=== PATIENT | male | born 1995 | race Caucasian/White ===

== ENCOUNTER → 2017-05-18 | Day surgery (SDC) | payer OTHER ==
[~2017-05-18] MED LIST: NO MEDICATIONS
--- NOTE | ~2017-05-18 | OR ---
Unit #: [id number] #: [id number] Patient: NATHEN LIVE [id number] [address] [id number] MR#: [id number] NAME: NATHEN LIVE ROOM: Date of Procedure: 05/18/2017 Admission Date: 05/18/2017 Surgeon: Vazquez Bonilla M.D. : 1995 Attending Physician: Vazquez Bonilla M.D. Primary Care Physician: Moose Tao M.D. OPERATIVE REPORT PREOPERATIVE DIAGNOSES 1. Nasal obstruction. 2. Septal deviation. 3. Turbinate hypertrophy. 4. Adenoid hypertrophy. POSTOPERATIVE DIAGNOSES 1. Nasal obstruction. 2. Septal deviation. 3. Turbinate hypertrophy. 4. Adenoid hypertrophy. PROCEDURE PERFORMED 1. Septoplasty. 2. Bilateral submucous resection of the inferior turbinates. 3. Adenoidectomy. ANESTHESIA By general endotracheal anesthesia. COMPLICATIONS None. FINDINGS Included significant adenoid hypertrophy, septal deviation to the right, and inferior turbinate hypertrophy. INDICATIONS FOR PROCEDURE This is a 21-year-old male, who has had a history of sleep-disordered breathing with also daily nasal obstruction. He was noted to have septal deviation with turbinate enlargement and adenoid hypertrophy in the clinic. He presents today for septoplasty, turbinate reduction, and adenoidectomy. DESCRIPTION OF PROCEDURE The patient was placed supine on the operating table. Anesthesia was achieved by general endotracheal anesthesia. The patient was prepped and draped for initially an adenoidectomy. Mouth gag was inserted and retracted. The palate was palpated. There was no submucous cleft noted. Red rubber catheter was placed to elevate the soft palate. Adenoids which were 3 to 4+ hypertrophied were then removed with suction Bovie cautery. Attention was then turned to the nose, where 1% lidocaine with epinephrine Unit #: [id number] #: [id number] Patient: NATHEN LIVE was injected at the columella bilaterally and then a hemitransfixion incision was made on the right and a submucoperichondrial flap developed first on the right and then on the left transecting a portion of the septal cartilage leaving an anterior strut of cartilage present for support. Deviated portions of cartilage and bone were then isolated at the midline and removed with Mc forceps as well as the assistance of a chisel for the maxillary spine. Flattened cartilage was then replaced in the midline and then the septal flaps were approximated with 4-0 plain gut mattress stitch. A 4-0 chromic interrupted was used to close the hemitransfixion incision site on the right. The inferior turbinates were then reduced by way of a submucous resection using [employer] reduction blade. This was done first on the left than on the right and a Boies elevator was used to outfracture the inferior turbinates bilaterally. The nose was then irrigated and Knight septal splints were placed bilaterally with a 2-0 silk stitch. The patient was awakened and transferred to Recovery in stable condition. Dictated by... Jessica Oviedo TD: 05/19/2017 08:22 JOB #: [id number] OPERATIVE REPORT Page 1 of 1 X Vazquez Bonilla MD PROCEDURE OPERATIVE NOTE
== END | disposition home or self-care (01) ==
LOC: CSUR 09:00
DX: J34.2 Deviated nasal septum (principal); J34.89 Other specified disorders of nose and nasal sinuses; J34.3 Hypertrophy of nasal turbinates; J35.2 Hypertrophy of adenoids; F17.200 Nicotine dependence, unspecified, uncomplicated; K08.409 Partial loss of teeth, unspecified cause, unspecified class; Z82.49 Family history of ischemic heart disease and other diseases of the circulatory system; Z80.9 Family history of malignant neoplasm, unspecified
CPT/HCPCS: J0131; J0330; J1100; J2250; J2405; J3010